=== PATIENT | female | born 2000 | race African-American/Black ===

== ENCOUNTER 2024-08-09 09:45 | Emergency (ER) | payer OTHER ==
[~2024-08-09] VITALS: Ht 162.6 cm; Wt 95.3 kg
[2024-08-09 09:51] VITALS: BP 113/99; TEMP 97.9
[2024-08-09] MEDS ORDERED: PRED50TA PO (10:19)
[2024-08-09] MEDS ORDERED: AMOX-427 PO (10:19)
[2024-08-09 10:24] VITALS: O2SAT 98
== END 2024-08-09 10:24 | disposition home or self-care (01) ==
LOC: ER 09:50
DX: J03.90 Acute tonsillitis, unspecified (principal); R07.0 Pain in throat; Z79.52 Long term (current) use of systemic steroids

== ENCOUNTER 2024-10-17 13:13 | Emergency (ER) | payer OTHER ==
[~2024-10-17] VITALS: Ht 162.6 cm; Wt 90.3 kg
[~2024-10-17 13:13] MED LIST: AMOX-427 PO; PRED50TA PO
[2024-10-17 13:59] VITALS: BP 123/75; TEMP 98.3
[2024-10-17 14:00] VITALS: O2SAT 99
[2024-10-17] MEDS ORDERED: LIDOCAINE HCL/PF 1% 30 ML SDV ONE (14:50)
[2024-10-17] MEDS: LIDOCAINE 1% INJ 50 ML MDV IJ ONE (14:54)
[2024-10-17] MEDS ORDERED: SULF1TAB48 PO (15:39)
== END 2024-10-17 15:48 | disposition home or self-care (01) ==
LOC: ER 13:19
DX: L03.011 Cellulitis of right finger (principal); F17.200 Nicotine dependence, unspecified, uncomplicated; Z79.52 Long term (current) use of systemic steroids
CPT/HCPCS: 99283; 10060; J3490

== ENCOUNTER 2024-12-03 15:00 | Emergency (ER) | payer OTHER ==
[~2024-12-03] VITALS: Ht 162.6 cm; Wt 93.0 kg
[~2024-12-03 15:00] MED LIST changes: +SULF1TAB48 PO
[2024-12-03 17:07] LABS: BASOPHILS % (AUTO) 0.4 % (0.0-2.0); EOSINOPHILS # (AUTO) 0.1 K/uL (0.0-0.7); EOSINOPHILS % (AUTO) 0.6 % (0.0-6.0); HEMATOCRIT 42 % (33-45); HEMOGLOBIN 14.1 g/dL (11.5-14.8); LYMPHOCYTES # (AUTO) 2.8 K/uL (0.8-4.8); MEAN CORPUSCULAR HEMOGLOBIN 31 PG (26.0-33.0); MEAN CORPUSCULAR HGB CONC 34 g/dl (31.0-36.0); MEAN CORPUSCULAR VOLUME 92 fL (82-100); MONOCYTES # (AUTO) 0.6 K/uL (0.1-1.30); MONOCYTES % (AUTO) 6.4 % (2.0-12.0); NEUTROPHILS # (AUTO) 5.8 K/uL (1.8-8.9); NEUTROPHILS % (AUTO) 62.6 % (43.0-81.0); PLATELET COUNT (AUTO) 282 K/uL (150-450); RED BLOOD CELL COUNT(AUTO) 4.52 MIL/uL (4.0-5.2); RED CELL DISTRIBUTION WIDTH 15.4 % (11.5-15.0); WHITE BLOOD COUNT (AUTO) 9.2 K/uL (4.3-11.0)
[2024-12-03 17:24] LABS: CALCIUM, SERUM 9.1 mg/dL (8.5-10.1); CREATININE 0.8 mg/dL (0.6-1.3); POTASSIUM 3.9 mmol/L (3.5-5.1)
[2024-12-03 17:30] LABS: ALBUMIN 3.7 g/dL (3.4-5.0); BILIRUBIN,DIRECT 0.1 mg/dL (0.0-0.2); BILIRUBIN,TOTAL 0.3 mg/dL (0.2-1.0); TOTAL PROTEIN, SERUM 7.3 g/dL (6.4-8.2)
[2024-12-03 17:48] VITALS: BP 121/67; TEMP 98; O2SAT 99
== END 2024-12-03 17:48 | disposition home or self-care (01) ==
LOC: ER 15:15
DX: R10.2 Pelvic and perineal pain (principal); F17.200 Nicotine dependence, unspecified, uncomplicated; Z79.52 Long term (current) use of systemic steroids
CPT/HCPCS: 36415; 76856-TC; 80048-TC; 80076-TC; 83690-TC; 84702-TC; 85025-TC